=== PATIENT | female | born 1965 | race Caucasian/White ===

== ENCOUNTER 2016-04-24 00:48 | Inpatient (IN) | payer OTHER, SELFPAY ==
[~2016-04-24] VITALS: Ht 162.6 cm; Wt 86.4 kg
--- NOTE | ~2016-04-24 | HP ---
ADMIT: 04/24/2016 RM/LOC: 504 [facility]#: [id number] [id number] [address] [address] IVETH MENESES [address] [place] [phone] Pre-OP History and Physical SEX: F AGE: 50 : 1965 DATE OF SERVICE: 04/24/2016 HISTORY OF PRESENT ILLNESS: The patient is a 50-year-old female, who was admitted last evening due to epigastric pain and fevers. She denies nausea or vomiting. Admits to normal regular bowel function. Denies melena or hematochezia. Denies any appetite or weight changes. Has had issues with narcotic abuse in the past although currently is not taking any narcotics. I believe, does take regular clonazepam, is not on any chronic antacid therapy. She has had "multiple small bowel obstructions in the past." Her past surgical history includes Yamilet-en-Y gastric bypass some years ago and has had other abdominal surgeries of uncertain reason. I believe a lot of them were for abdominal wall hernias. She had upper and lower endoscopy done by Dr. Alcaraz less than a year ago with the upper scope being unremarkable and normal lower scope showing couple of small polyps. PAST SURGICAL HISTORY: Includes multiple abdominal surgeries for gastric bypass and abdominal wall hernias and possibly for endometriosis and bowel obstructions in the past and cholecystectomy. ALLERGIES: SHE HAS NO ALLERGIES. MEDICATIONS: See clonazepam listed. FAMILY HISTORY: Noncontributory. SOCIAL HISTORY: She is recovering alcoholic, is a pack-a-day smoker cigarettes. REVIEW OF SYSTEMS: Denies headaches. No chest pain. No nausea or vomiting. She admits to feeling warm and having epigastric pain. Ulcer past medical history includes. Denies burning with urination. No change in her bowel function. She had normal bowel movement yesterday. ASSESSMENT: The patient is a 50-year-old female with epigastric pain and low grade temps of unknown origin. LABORATORY DATA: Her white blood cell count was normal. Her glucose was ADMIT: 04/24/2016 RM/LOC: 504 [facility] MR#: [id number] [address] [phone] IVETH MEN[address]ES [address] [place] [phone] Pre-OP History and Physical SEX: F AGE: 50 : 1965 normal. So, there was not an acute phase reactant of her glucose. Her CT scan of the abdomen and pelvis was normal with no evidence of obstruction. No free air or free fluid. PLAN: The patient is currently being worked up for her temps likely with a chest x-ray and UA. Tried to visit with her mother know that there was any clinical or radiographic evidence of bowel obstruction. The fact that she has had issues in the past of epigastric pain. She may benefit from a scheduled antacid medicine. Clearly, she seems to struggle from some anxiety and she is on clonazepam p.r.n. At this point in time, I do not see any evidence of bowel obstruction. I do not see any need for endoscopic or surgical intervention at this point in time. River Munguia MD/ pippa JOB #: [id number] CC: Luis Valentino MD, Attending Physician Luis Valentino MD, Family Physician
[~2016-04-24 00:48] MED LIST: FEOSOL-DPS325 MG PO; KLONOPIN DPS0.5 MG PO; OMNICEF DPS300 MG PO; PROTONIX40 MG PO; THERA1 EACH PO; TYLENOL DPS325 MG PO
--- NOTE | 2016-04-24 19:29 | ER ---
ADMIT: 04/24/2016 RM/LOC: 504 [facility] MR#: [id number] 2620 [facility] [address] [place] [phone] IVETH MENESES [address] [place] [phone] Emergency Room Report SEX: F AGE: 50 : 1965 DATE: 04/24/2016 HISTORY OF PRESENT ILLNESS: The patient is a 50-year-old female, allegedly with past medical history of multiple bowel obstruction and bowel surgery and also peptic ulcer and stomach surgery, came to the ER with chief complaint of epigastric pain for 1 day. The patient states the pain is sharp and severe and increases with palpation of the epigastric area. The patient states she had similar pain in the past. Then she was at the beginning of the bowel obstruction. The patient had normal bowel movement, but did not pass gas after that. Patient was nauseous and vomited just once, which was nonbloody, and nonbilious, and no fecal matter. The pain in the epigastric area is sharp and continuous and severe. PHYSICAL EXAMINATION: VITAL SIGNS: The patient had temperature of 100.7, which followup temperature check was 99, blood pressure was 140/56, and pulse was 86. The pain was controlled and the patient received Zofran for nausea. HEAD AND NECK: Exam was noncontributory. CHEST: Clear bilaterally. HEART: Normal heart sounds. ABDOMEN: The patient had ppjx-wz-ewzkxbzd epigastric tenderness. There is no CVA tenderness. The rest of the physical exam is noncontributory and there is no rebound. LABORATORY DATA: The patient was negative for , and the patient had 8800 white BC with hemoglobin of 14.2, and platelet of 198. UA had 2 white BC and 5 RBCs, and the patient had glucose of 83 with lipase of 165 and AST of 49 and ALT of 45. Lactic acid was 1.3. CT of the abdomen and pelvis was negative for any abnormality. PLAN: The patient received Protonix IV, IV fluids, GI cocktail, pain was controlled mildly with multiple doses of morphine and Dilaudid. The patient still states that she has irvcuzhl-ai-nupbow pain in the epigastric area. Family medicine was consulted and the patient was admitted for intractable abdominal pain. Doug Reynolds MD/ pippa JOB #: [id number] CC: Savage Sparks MD, Attending Physician Savage Sparks MD, Family Physician
[2016-04-27] MEDS ORDERED: CHANTIX1 MG PO (11:19)
[2016-04-27] MEDS ORDERED: MAALOX DPS30 ML PO (11:20)
[2016-04-27] MEDS ORDERED: NICOTINE PATCH1 EAC5 TD (11:20)
[2016-04-27] MEDS ORDERED: KEFLEX-DPS500 MG PO (11:21)
--- NOTE | 2016-04-28 10:46 | HP ---
ADMIT: 04/24/2016 RM/LOC: 504 [facility] MR#: [id number] [facility]#: [id number] 2620 [facility] [address] [place] [phone] IVETH MENESES [address] [place] [phone] History and Physical SEX: F AGE: 50 : 1965 DATE OF SERVICE: CHIEF COMPLAINT: Abdominal pain. HISTORY OF PRESENT ILLNESS: This is a 50-year-old female, patient of Dr. Valentino with a past medical history significant for bariatric surgery in 2002 with multiple small-bowel obstructions and surgical corrections, iron- deficiency anemia, history of gastric ulcer with perforation status post repair, GERD, hypertension, chronic abdominal pain, alcohol and pain pill abuse status post [facility] program completion with 2 years sobriety who is admitted with abdominal pain. The patient states that yesterday evening, she had a sudden onset of mid epigastric pain with associated nausea. She did not have any vomiting or diarrhea associated with this. She did have a normal stool earlier in the day and did not notice any blood in it. She took Tylenol without relief and so she came to the Emergency Department. In the ER, vital signs were stable. The CT of her abdomen and pelvis was performed that was negative for small bowel obstruction, although it did note a moderate amount of stool in the colon. She also had an abdominal ultrasound that was negative for anything acute. Her CBC and CMP were within normal limits. Her UA was negative for any infection. She was given 1 L normal saline bolus and then required 8 mg of IV morphine as well as 1.5 mg of IV Dilaudid in order to get her pain under control. She is currently rating her pain an 8/10. She has not had any vomiting or diarrhea since admission. She does report that her current pain is the same pain that she experiences every time that she has a small bowel obstruction and requests to get an NG tube to prevent her from having surgery. PAST MEDICAL HISTORY: 1. Chronic abdominal pain. 2. History of bariatric surgery with multiple complications. 3. Iron-deficiency anemia. 4. History of partial small-bowel obstructions x3. 5. History of perforated gastric ulcer status post repair. 6. GERD. 7. Hypertension. 8. Tobacco abuse. 9. Alcohol abuse. 10.Pain pill addiction. 11.As stated above in the HPI, she did good at the alcohol and drug treatment center back in November of 2013 and completed that course. She has been sober for over 2 years. She was last admitted to our hospital in May of 2015 for abdominal pain. She did not have a SBO at that time, but was noted to be severely anemic, thought to be from her bariatric surgery. She did receive a transfusion while here as well as got an EGD and colonoscopy that were negative for anything acute. PAST SURGICAL HISTORY: 1. Bariatric surgery back in 2002, done in June. 2. Tonsillectomy. ADMIT: 04/24/2016 RM/LOC: 504 [facility] MR#: [id number] [address] [place] [phone] IVETH MENESES [address] [place] [phone] History and Physical SEX: F AGE: 50 : 1965 3. Cholecystectomy. 4. Small bowel obstruction correction x3, last surgery was in May of 2013. 5. Perforated gastric ulcer repair. 6. Incisional hernia repair. 7. Thoracic fusion for herniated disk. 8. EGD and colonoscopy in May of 2015. MEDICATIONS: 1. Chantix. 2. Iron replacement. 3. Multivitamin. ALLERGIES: NONE. FAMILY HISTORY: Noncontributory. SOCIAL HISTORY: Patient currently smokes 1 pack of cigarettes per day. She is on Chantix. She denies any current alcohol or illegal drug use. She lives at home and works at the [employer]. REVIEW OF SYSTEMS: A 10-point review of systems was reviewed and negative other than that stated above in the HPI. PHYSICAL EXAM: VITAL SIGNS: Blood pressure 121/66, pulse 83, respirations 16, temp 101, and saturating 91% on room air. GENERAL: She is alert and oriented x3. She is in moderate distress from pain. Lying in her bed. HEART: Regular rate and rhythm. LUNGS: Clear. Abdomen she does have diffuse tenderness to palpation. No rebound or guarding. She has positive bowel sounds. Her belly is soft and nondistended. EXTREMITIES: No edema. LABORATORY DATA: Sodium 142, potassium 4.4, creatinine 0.7, AST was 49, ALT 45, lactic acid 1.3, and lipase 165. UA was negative for infection. test negative. White count 8.8, hemoglobin 14.2, and platelets 198. CT of her abdomen and pelvis was negative for any obstruction but did show a moderate amount of stool in the colon. Abdominal ultrasound was negative. ADMIT: 04/24/2016 RM/LOC: 504 [facility] MR#: [id number] [address] [place] [phone] IVETH MENESES [address] [place] [phone] History and Physical SEX: F AGE: 50 : 1965 ASSESSMENT AND PLAN: 1. Intractable abdominal pain. Again CT of her abdomen and pelvis is negative. We will go ahead and keep her n.p.o. for now and manage her pain with IV Dilaudid, also give her stool softeners and IV fluids. I asked General surgery to see her just with her history of multiple small- bowel obstructions. 2. History of multiple small-bowel obstructions. 3. Tobacco abuse. I will order nicotine patch for her. 4. Iron-deficiency anemia, currently has a normal hemoglobin. 5. Gastroesophageal reflux disease. 6. Chronic abdominal pain. Connie Low DO Resident / Luis Valentino MD / pippa JOB #: [id number] CC: Luis Valentino MD, Attending Physician Luis Valentino MD, Family Physician
--- NOTE | 2016-06-03 10:17 | DS ---
ADMIT: 04/24/2016 RM/LOC: 504 [facility] MR#: [id number] [address] [phone] IVETH MENESES [address] [place] [phone] General Discharge Summary SEX: F AGE: 50 : 1965 ADMISSION DATE: 04/24/2016 DISCHARGE DATE: 04/26/2016 ADMITTING DIAGNOSIS: As per history and physical. FINAL DIAGNOSES: 1. Recurrent partial small bowel obstruction, resolved with medical management. 2. Cellulitis of the right lower extremity. 3. Status post multiple prior abdominal surgeries. 4. Hypertension. 5. Chronic iron deficiency anemia. 6. Nicotine dependence/tobacco use disorder. 7. Alcohol use disorder, in full sustained remission. 8. Gastroesophageal reflux disease without esophagitis. 9. Status post bariatric surgery. 10.Chronic severe lymphedema of the lower extremities. COMPLICATIONS: None. OPERATIONS: None. CLINICAL HISTORY: The patient is a 50-year-old, white female, who was admitted to [place] on 04/24/2016 after presenting to the emergency room with severe abdominal pain. She has had multiple small-bowel obstructions in the past and has had to have surgical intervention on 2 or 3 occasions. Her last couple of bowel obstructions have been managed medically without further surgical intervention. The patient presented to the emergency room complaining of severe abdominal pain with nausea and vomiting, was evaluated in the ER and felt to have possible small bowel obstruction and is admitted at this time for medical management. For further details of her clinical history as well as past medical history and pertinent findings on physical exam, please see her dictated history and physical. Please also see Dr. Munguia's dictated surgical consultation. LABORATORY AND X-RAY SUMMARY FROM THIS ADMISSION: The patient's initial CBC showed a white count of 8800 with a hemoglobin of 14.2, hematocrit 41.8. Following rehydration with IV fluids overnight, her white count dropped to 2700, hemoglobin down to 12, hematocrit 36.5. At discharge, her white count was 4700, hemoglobin 11.5, hematocrit 36.7. On admission, her INR was less than 1.0. PTT was normal. Her urinalysis on admission was clear. Chemistry studies on admission showed a sodium of 142, potassium 4.4. Her BUN was 16 with a creatinine of 0.7, blood sugar 83. Her LFTs were all normal except for AST being mildly elevated at 49. At discharge, sodium was 144, potassium 3.5, BUN was 10, creatinine was 0.6. Chemistry studies were essentially normal. Total protein is low at 5.5. Her albumin is low at 2.6. On admission, her amylase and lipase were normal. Lactic acid was normal. Her chronic hepatitis panel is negative for hepatitis B and C, as well as chronic hep A. X-ray studies included a CT of the abdomen and pelvis done in the ER. This ADMIT: 04/24/2016 RM/LOC: 504 [facility] MR#: [id number] [address] [place] [phone] IVETH MENESES [address] [place], [place] [phone] General Discharge Summary SEX: F AGE: 50 : 1965 showed a small 11 mm low-density lesion in the dome of the liver. She had extensive postoperative changes from her previous bariatric surgery but no obvious signs of an acute bowel obstruction. 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 Ultrasound of the upper abdomen showed the gallbladder to be surgically absent. Pancreas was obscured by gas. Liver had normal echogenicity. A venous Doppler on her right lower extremity showed no evidence of DVT. HOSPITAL COURSE: The patient was admitted, placed on IV fluids for hydration and placed at bowel rest. We considered placing an NG tube but decided to wait and see how she did over the first 24 hours. She was placed on a Dilaudid [employer] ADVIS[employer] for pain control and was given IV Zofran for nausea. Dr. Munguia agreed with medical management of this partial small bowel obstruction. By her second hospital day, she was feeling better and was started on ice chips and clear liquids. She tolerated this well. This was then progressed to full liquids which she also tolerated. She did develop some inflammation and spontaneous cellulitis in her right lower extremity, which she has had in the past associated with her lymphedema. For that reason, she was started on IV Rocephin and converted to oral antibiotics at discharge. Her abdominal pain subsided and she was ready to dismiss on the afternoon of 04/26/2016. She was dismissed on the following medications: 1. Habitrol patch 14 mg, on in the a.m., off at bedtime. 2. Maalox p.r.n. indigestion. 3. Tylenol 650 mg every 4-6 hours p.r.n. minor discomfort. 4. Chantix 1 mg b.i.d. 5. Minr-oga-xaexscx iron supplement two tablets daily. 6. Multivitamin 1 daily. 7. Keflex 500 mg two b.i.d. for 10 days for the cellulitis in her right leg. 8. Protonix 40 mg one daily for her chronic GERD symptoms. FOLLOWUP: She is to follow up in our office in 4 to 5 days. CONDITION AT DISCHARGE: Improved. PROGNOSIS: [place] to be good. Luis Valentino MD/ pippa JOB #: [id number] CC: Luis Valentino MD, Attending Physician Luis Valentino MD, Family Physician
== END 2016-04-26 19:25 | disposition home or self-care (01) | DRG 389 ==
LOC: ER 00:48 → 5MS 06:05
PROVIDERS: ADMIT Family Medicine
DX: K56.60 Unspecified intestinal obstruction (principal); L03.115 Cellulitis of right lower limb; I10 Essential (primary) hypertension; D50.9 Iron deficiency anemia, unspecified; F17.210 Nicotine dependence, cigarettes, uncomplicated; F10.21 Alcohol dependence, in remission; K21.9 Gastro-esophageal reflux disease without esophagitis; Z98.1 Arthrodesis status; Z98.84 Bariatric surgery status; Z87.11 Personal history of peptic ulcer disease

== ENCOUNTER 2016-07-06 08:37 | Emergency (ER) | payer OTHER ==
[~2016-07-06 08:37] MED LIST changes: +CHANTIX1 MG PO; +KEFLEX-DPS500 MG PO; +MAALOX DPS30 ML PO; +NICOTINE PATCH1 EAC5 TD
--- NOTE | 2016-07-25 15:43 | ER ---
ADMIT: 07/06/2016 RM/LOC: ER [facility] MR#: [id number] [address] [phone] IVETH MENESES [address] [place] [address] Emergency Room Report SEX: F AGE: 51 : 1965 DATE: 07/06/2016 This 51-year-old female fell out of bed day before yesterday and now comes with complaints of right shoulder, primarily the posterior portion of her shoulder and scapula pain, worse with movement, not relieved by anything though she has not tried anything other than Motrin. See T-sheet for history physical. Chest x-ray is unremarkable. The patient is diagnosed with shoulder pain, given a sling and a prescription for Ultram. Instructed to use a heating pad. Follow up in 2 or 3 days if not better. Ramón Chavez MD/ pippa JOB #: [id number] CC: Ramón Chavez MD, Attending Physician Luis Valentino MD, Family Physician
== END 2016-07-06 10:29 | disposition home or self-care (01) ==
LOC: ER 08:37
DX: M25.512 Pain in left shoulder (principal); F17.210 Nicotine dependence, cigarettes, uncomplicated; Z79.899 Other long term (current) drug therapy; W06.XXXA Fall from bed, initial encounter; Y92.009 Unspecified place in unspecified non-institutional (private) residence as the place of occurrence of the external cause